=== PATIENT | male | born 1995 | race African-American/Black ===

== ENCOUNTER 2023-10-18 07:29 | Emergency (ER) | payer MEDICAID ==
[~2023-10-18] VITALS: Ht 177.8 cm; Wt 87.0 kg
[2023-10-18 08:24] VITALS: BP 130/69; O2SAT 99
[2023-10-18] MEDS ORDERED: DOXY100C5 MT (09:57)
[2023-10-18] MEDS ORDERED: CEFTRIAXONE SODIUM 500 MG/VIAL IM ONE (10:00)
[2023-10-18 10:42] VITALS: PULSE 56; RESP 12; TEMP 98.6
== END 2023-10-18 10:38 | disposition home or self-care (01) ==
LOC: ER 07:44
DX: A64 Unspecified sexually transmitted disease (principal)
CPT/HCPCS: 99283

== ENCOUNTER 2025-06-10 20:15 | Emergency (ER) | payer MEDICAID ==
[~2025-06-10] VITALS: Ht 177.8 cm; Wt 90.0 kg
[~2025-06-10 20:15] MED LIST: DOXY100C5 MT
[2025-06-10 20:20] VITALS: O2SAT 100
[2025-06-10 23:03] LABS: BASOPHILS % 0.2 % (0.0-2.0); EOSINOPHILS % 0.1 % (0.0-5.0); HEMATOCRIT. 45.2 % (42.0-52.0); HEMOGLOBIN. 14.8 g/dL (14.0-18.0); LYMPHOCYTES % 7.1 % (20.0-50.0); MEAN PLATELET VOLUME 10.6 fl (7.4-10.4); MONOCYTES % 3.7 % (2.0-8.0); NEUTROPHILS % 88.9 % (40.0-76.0); PLATELET 194 x1000/uL (130-400); RED BLOOD CELL COUNT 4.94 mill/uL (4.7-6.1); RED CELL DISTRIBUTION WIDTH 13.1 % (11.6-14.6)
[2025-06-10 23:15] LABS: CREATININE 1.2 mg/dL (0.6-1.3); UREA NITROGEN BLOOD 11 mg/dL (9-23)
[2025-06-10 23:17] LABS: ASPARTATE AMINOTRANSFERASE 29 IU/L (<34); BILIRUBIN DIRECT 0.3 mg/dL (<=3.0); BILIRUBIN TOTAL 1.4 mg/dL (0.1-1.0); PROTEIN TOTAL 8.1 g/dL (6.0-8.3)
[2025-06-10 23:37] LABS: CLARITY URINE CLEAR (CLEAR); COLOR URINE YELLOW (YELLOW); GLUCOSE URINE NEGATIVE (NEGATIVE); KETONES URINE TRACE (NEGATIVE); LEUKOCYTE ESTERASE URINE NEGATIVE (NEGATIVE); NITRITE URINE NEGATIVE (NEGATIVE); OCCULT BLOOD URINE 1+ (NEGATIVE); PH URINE 5.5 (4.5-8.0); PROTEIN URINE TRACE (NEGATIVE); SPECIFIC GRAVITY URINE 1.025 (1.005-1.030); UROBILINOGEN URINE 0.2 E.U./dL (0.2-1.0)
[2025-06-11 00:23] LABS: WBC URINE 0-2 /hpf (0-2)
[2025-06-11 00:24] LABS: BACTERIA URINE TRACE; SQUAMOUS EPITHELIAL CELL URINE RARE /lpf (RARE/1+)
[2025-06-11] MEDS: MAGNESIUM/ALUMINUM HYDROXIDE/SIMETHICONE 30ML UDC PO ONE (01:15)
[2025-06-11 01:18] VITALS: BP 145/76; PULSE 53; RESP 16; TEMP 36.7; O2SAT 100
== END 2025-06-11 01:23 | disposition home or self-care (01) ==
LOC: ER 20:15
DX: R31.9 Hematuria, unspecified (principal); R11.2 Nausea with vomiting, unspecified
CPT/HCPCS: 36415; 80048; 80076; 81003; 85025; 99283